=== PATIENT | female | born 1985 | race Caucasian/White ===

== ENCOUNTER 2025-03-15 10:00 | Day surgery (SDC) | payer OTHER ==
[2025-03-10 10:16] LABS: EOS # 0.07 (0.04-0.54); EOS % 1.3 % (0.7-7.0); LYMPH # 2.68 (1.18-3.74); LYMPH % 48.4 % (19.3-53.1); MEAN PLATELET VOLUME 11.70 fl (9.4-12.4); MONO # 0.50 (0.24-0.82); MONO % 9.0 % (4.7-12.5); NEUT # 2.15 (1.56-6.13); NEUT % 38.8 % (34.0-71.1); RED CELL DISTRIBUTION WIDTH 15.2 % (11.6-14.4)
[2025-03-10 10:17] LABS: URINE APPEARANCE Clear; URINE BILIRRUBIN Negative (NEGATIVE); URINE BLOOD Negative; URINE COLOR Yellow; URINE GLUCOSE Negative (NEGATIVE); URINE KETONE Trace (NEGATIVE); URINE LEUKOCYTE Negative; URINE NITRATE Negative; URINE PROTEIN Negative (NEGATIVE); URINE UROBILINOGEN 0.2 E.U./dl
[2025-03-10 10:18] LABS: BASO % 2.3 % (0.1-1.2); URINE BACTERIA 3105.5 uL (0.0-1933); URINE CAST 1.61 uL (0.0-1.40); URINE EPITHELIAL CELLS 31.8 uL (0.0-38.8); URINE RBC 2.1 uL (0.0-20.8); URINE WBC 15.2 uL (0.0-23.2)
[2025-03-10 10:34] LABS: INR 1.05
[2025-03-10 11:10] LABS: ALT/SGPT 19.0 U/L (12-78); AST/SGOT 13.0 U/L (15-37); BILIRUBIN TOTAL 1.55 mg/dL (0.3-1.2); BUN CREA RATIO 11.0 (7.0-25.0); CREATININE SERUM 0.82 mg/dL (0.55-1.02); GFR 77.61; GLOBULINA 3.7 G/DL (2.4-3.5); GLUCOSE FASTING 82.0 mg/dL (65-100); OSMOLALITY SERUM 281.0 MOSM/KG (275-295)
[2025-03-15] MEDS ORDERED: CEFAZOLIN SODIUM 1,000 MG VIAL ONE (11:44)
[2025-03-15] MEDS ORDERED: LIDOCAINE HCL 1%/EPINEPHRINE 20ML VIAL IJ ONE (13:14)
[2025-03-15] MEDS ORDERED: BUPIVACAINE HCL/MPF 0.5% 30ML VIAL ONE (13:14)
[2025-03-15] MEDS ORDERED: POVIDONE-IODINE 118 ML BOTT TOP ONE (13:31)
== END 2025-03-15 20:40 | disposition home or self-care (01) ==
LOC: CIR.AMB 10:00
PROVIDERS: ATTEND Obstetrics & Gynecology
DX: N84.0 Polyp of corpus uteri (principal); N93.8 Other specified abnormal uterine and vaginal bleeding